=== PATIENT | female | born 1930 | race Two or more races ===

== ENCOUNTER → 2018-09-27 20:25 | Outpatient (CLI) | payer MEDICARE ==
[2018-09-27 21:10] LABS: APPEARANCE CLEAR (CLEAR); BILIRUBIN NEGATIVE (NEGATIVE); COLOR YELLOW (YELLOW); GLUCOSE NEGATIVE (NEGATIVE); KETONE NEGATIVE (NEGATIVE); NITRITE NEGATIVE (NEGATIVE); PROTEIN NEGATIVE (NEGATIVE); RED CELLS - URINE OCC /hpf (0-5); UROBILINOGEN NORMAL (NORMAL)
[2018-09-27 21:11] LABS: BACTERIA FEW /hpf (NONE SEEN)
== END | disposition home or self-care (01) ==
LOC: D.LABREF 20:25
PROVIDERS: ATTEND Urology
DX: R30.0 Dysuria (principal)